=== PATIENT | female | born 1960 | race Caucasian/White ===

== ENCOUNTER 2017-12-15 20:19 | Emergency (ER) | payer OTHER ==
[2017-12-15] MEDS: DIPHTH,PERTUSS(ACELL),TET TOX 0.5 ML DISP.SYRIN. VAX IM ×2 (22:52)
== END 2017-12-15 22:55 | disposition home or self-care (01) ==
LOC: ER 20:19
DX: S00.01XA Abrasion of scalp, initial encounter (principal); S50.312A Abrasion of left elbow, initial encounter; R42 Dizziness and giddiness; R11.0 Nausea; Z88.2 Allergy status to sulfonamides; Z88.5 Allergy status to narcotic agent; Z88.8 Allergy status to other drugs, medicaments and biological substances; W01.0XXA Fall on same level from slipping, tripping and stumbling without subsequent striking against object, initial encounter; Y93.89 Activity, other specified; Y99.8 Other external cause status; Y92.89 Other specified places as the place of occurrence of the external cause
CPT/HCPCS: 70450; 90471; 90715; 99284-25

== ENCOUNTER 2020-03-04 15:24 | Emergency (ER) | payer MEDICARE, OTHER ==
[~2020-03-04] VITALS: Ht 165.1 cm; Wt 81.0 kg
[2020-03-04] MEDS ORDERED: FLUORESCEIN OPHTH TEST STRIP. OU ONE (15:45)
[2020-03-04] MEDS ORDERED: TETRACAINE 0.5% OPHTH SOLUTION 4ML BOTTLE. OU ONE (15:45)
[2020-03-04] MEDS ORDERED: ERYTHROMYCIN 0.5% OPHTH OINTMENT 1GM TUBE. OS ONE (16:45)
--- NOTE | 2020-03-04 16:50 | PHYS DOC ---
Past Medical History Past Medical History: Other Additional Past Medical Histor: legally blind Past Surgical History: Cholecystectomy, , Tonsillectomy, Tubal ligation, Other Additional Past Surgical Histo: eyes, cataracts Smoking Status: Never Smoker Alcohol Use: Rarely Drug Use: None General Adult EDM: Chief Complaint: EYE PROBLEMS HPI: HPI: Patient is a 60 year old female who presents to the emergency department with complaints of left eye pain and eyelid swelling. Patient states she accidentally walked into a tree branch 2 days ago while doing yard work. She states that a small branch scratched her left eye. Patient denies any decreased visual acuity from the affected eye. She states she is legally blind in both of her eyes. She also reports a history of bilateral cataract surgeries. She currently rates her pain a 7 out of 10 on the pain scale, she states that the pain increases if she opens her eye, closing her eye helps to reduce the pain somewhat. Patient also reports that she is having increased problems with her depression, and has had thoughts about not wanting to wake up. She denies any suicidal ideations or attempts at this time. Review of Systems: Review of Systems: Constitutional: Denies fever or chills. [] Eyes: See HPI, denies drainage or crusting HENT: Denies nasal congestion or sore throat. [] Respiratory: Denies cough or shortness of breath. [] Cardiovascular: Denies chest pain or edema. [] Integument: Denies rash; reports swelling to left eyelid and erythema [] Neurologic: Denies headache, focal weakness or sensory changes. [] Psychiatric: See HPI Heart Score: Risk Factors: Risk Factors: DM, Current or recent (<one month) smoker, HTN, HLP, family history of CAD, obesity. Risk Scores: Score 0 - 3: 2.5% MACE over next 6 weeks - Discharge Home Score 4 - 6: 20.3% MACE over next 6 weeks - Admit for Clinical Observation Score 7 - 10: 72.7% MACE over next 6 weeks - Early Invasive Strategies Current Medications: Current Medications Medications (Trade) Dose Ordered Sig/Ravinder Start Time Stop Time Status Last Admin Dose Admin Erythromycin (Romycin) 0.5 inch 1X ONCE 03/04/20 16:45 03/04/20 16:46 Fluorescein Sodium (Ful-Mari) 1 strip 1X ONCE 03/04/20 15:45 03/04/20 15:51 DC 03/04/20 16:13 1 STRIP Tetracaine HCl (Tetracaine) 1 drop 1X ONCE 03/04/20 15:45 03/04/20 15:51 DC 03/04/20 16:12 1 DROP Allergies: Allergies: Allergies Coded Allergies Type Severity Reaction Last Updated Verified bee venom protein (honey bee) Allergy Severe 03/04/20 Yes Sulfa (Sulfonamide Antibiotics) Allergy Intermediate hives 12/15/17 Yes morphine Allergy Intermediate 03/04/20 Yes melatonin Allergy Mild headaches 12/15/17 Yes codeine Adverse Reaction Mild headache 12/15/17 Yes Physical Exam: PE: Constitutional: Well developed, well nourished, no acute distress, non-toxic appearance. [] HENT: Normocephalic, atraumatic, bilateral external ears normal, oropharynx moist, no oral exudates, nose normal. [] Eyes: PERRLA, EOMI, left eye conjunctive is injected, right eye conjunctiva normal, no discharge; mild edema of left upper eyelid present with mild erythema [] Neck: Normal range of motion, no stridor. [] Cardiovascular:Heart rate regular rhythm Lungs & Thorax: Respirations even and unlabored, no retractions, no respiratory distress Skin: Warm, dry, no erythema, no rash. [] Extremities: No cyanosis, ROM intact Neurologic: Alert and oriented X 3, no focal deficits noted. [] Psychologic: Affect normal, judgement normal, mood depressed Current Patient Data: Vital Signs: Vital Signs Date Time Temp Pulse Resp B/P (MAP) Pulse Ox O2 Delivery O2 Flow Rate FiO2 03/04/20 15:50 98.2 87 16 128/66 (86) 97 Room Air 98.2 EKG: EKG: [] Radiology/Procedures: Radiology/Procedures: Using tetracaine and fluroscein the patient's left eye was examined under Wood's lamp and an area of uptake at approximately 6'clock was noted. Patient's ocular symptoms have stabilized while they have been evaluated in the department and are appropriate for outpatient work up. No evidence of ruptured globe, retinal detachment, acute angle closure glaucoma, or deep space infection. Plan for 24 hour ophthalmologic follow up. [] Course & Med Decision Making: Course & Med Decision Making Pertinent Labs and Imaging studies reviewed. (See chart for details) 1635- PAT steam engineer at bedside to evaluate patient. [] Krystle Disclaimer: Dragon Disclaimer: This electronic medical record was generated, in whole or in part, using a voice recognition dictation system. Departure Departure Impression: Primary Impression: Left cornea abrasion Qualified Codes: S05.02XA - Injury of conjunctiva and corneal abrasion without foreign body, left eye, initial encounter Additional Impressions: Acute conjunctivitis, left eye Qualified Codes: H10.32 - Unspecified acute conjunctivitis, left eye Patient fears illness Disposition: HOME, SELF-CARE Condition: STABLE Referrals: ANNALISE CUELLO MD (PCP) Matthias MCLEOD MD Patient Instructions: Conjunctivitis (Viral and Bacterial), Eye - Corneal Abrasion, [id number] Additional Instructions: Fill the prescription(s) and use as directed. Apply warm, moist washcloths to eyes needed for comfort. Recommend use of baby shampoo to wash eyelids. Follow- up with Dr. Mcleod tomorrow for re-evaluation. Return to the emergency room if your symptoms worsen. Scripts Erythromycin Base (Erythromycin) 1 Gm Oint...g. 0.5 INCH OD QID for 5 Days, #1 TUBE 0 Refills Prov: JEN FELICIANO CUSTOM MILLER 03/04/20 JEN FELICIANO CUSTOM MILLER Mar 04, 2020 16:50
[2020-03-04 18:04] VITALS: BP 156/83
[2020-03-04] MEDS ORDERED: ERYT1OIN6 OD (18:14)
== END 2020-03-04 18:24 | disposition home or self-care (01) ==
LOC: ER 15:24
DX: S05.02XA Injury of conjunctiva and corneal abrasion without foreign body, left eye, initial encounter (principal); H10.32 Unspecified acute conjunctivitis, left eye; Z88.2 Allergy status to sulfonamides; Z88.5 Allergy status to narcotic agent; Z88.8 Allergy status to other drugs, medicaments and biological substances; Z91.030 Bee allergy status; W22.8XXA Striking against or struck by other objects, initial encounter; Y93.89 Activity, other specified; Y92.89 Other specified places as the place of occurrence of the external cause; Y99.8 Other external cause status
CPT/HCPCS: 99283